=== PATIENT | male | born 1975 | race Caucasian/White ===

== ENCOUNTER 2023-07-30 14:07 | Outpatient (CLI) | payer OTHER, SELFPAY ==
--- NOTE | ~2023-07-30 | XR_ITS ---
EXAMINATION: XR chest 2V 07/30/2023 14:37 INDICATION: Sternal chest pain PROCEDURE: 2 view chest COMPARISON: 12/30/2015 FINDINGS: The lungs are clear. The cardiomediastinal silhouette is within normal limits. There are no pleural effusions. There is no pneumothorax suspected. IMPRESSION: 1: NO ACUTE CARDIOPULMONARY DISEASE. Reviewed, dictated and finalized at location L. ACCEPTANCE TESTER
[2023-07-30 14:36] LABS: Basophils Percent Auto 0.5 % (0.2-1.2); Eosinophils Absolute Auto 0.1 K/mm3 (0-0.3); Eosinophils Percent Auto 1.2 % (0-4.4); Hematocrit 46.8 % (42.0-52.0); Hemoglobin 15.9 g/dL (14.0-18.0); Immature Granulocyte Absolute 0.02 K/mm3 (0.00-0.031); Immature Granulocyte Percent A 0.3 % (0-0.5); Lymphocytes Absolute Auto 1.65 K/mm3 (0.9-3.2); Lymphocytes Percent Auto 22.3 % (18.3-44.2); Mean Corpuscular Volume 91.2 fl (80-100); Mean Platelet Volume 10.1 fl (7.4-10.4); Monocytes Absolute Auto 0.6 K/mm3 (0.1-0.6); Monocytes Percent Auto 7.8 % (2.6-8.5); Neutrophils Percent Auto 67.9 % (45.5-73.1); Platelet Count Result 234 k/mm3 (150-375); Red Blood Count 5.13 M/mm3 (4.6-6.20); Red Cell Distribution Width 12.6 % (11.5-14.5); White Blood Count 7.4 K/mm3 (4.5-10.0)
[2023-07-30 14:42] LABS: Cholesterol 163 mg/dL (0-200); HDL Direct 30 mg/dL; Triglycerides 278 mg/dL (<150)
[2023-07-30 14:44] LABS: Alanine Aminotransferase 31 U/L (6-50); Albumin Level 4.5 g/dL (3.5-5.1); Alkaline Phosphatase 101 U/L (38-126); Anion Gap 10 mmol/L (8-16); Aspartate Amino Transferase 26 U/L (17-59); Bilirubin,Total 0.7 mg/dL (0.2-1.3); Blood Urea Nitrogen 15 mg/dL (9-20); Calcium 9.5 mg/dL (8.4-10.2); Carbon Dioxide 31 mmol/L (22-30); Chloride 100 mmol/L (98-107); Estimated Glomerular Filt Rate > 60; Glucose 118 mg/dL (65-110); Potassium 4.2 mmol/L (3.4-5.0); Sodium 141 mmol/L (137-145)
[2023-07-30 14:53] LABS: LDL Cholesterol Direct 92 mg/dL
[2023-07-30 15:04] LABS: Troponin I < 0.012 ng/mL (0.000-0.034)
== END 2023-07-30 14:08 | disposition home or self-care (01) ==
PROVIDERS: PCP Family Medicine; Visit Provider Physician Assistant
DX: R05.9 Cough, unspecified (principal); E78.1 Pure hyperglyceridemia; R07.9 Chest pain, unspecified; R00.2 Palpitations
CPT/HCPCS: 36415; 71046; 80053; 80061; 84484; 85025

== ENCOUNTER 2023-08-27 09:03 | Outpatient (CLI) | payer OTHER, SELFPAY ==
--- NOTE | 2023-08-27 09:30 | EST_ITS ---
Patient Info Name: Liam Leary Age: 47 years : 1975 Gender: Male Ht: 70 in Wt: 210 lbs BSA: 2.19 m2 HR: 77 bpm BP: 158 / 103 mmHg Heart Rhythm: Sinus Rhythm Exam Date: 08/27/2023 9:41 AM Exam Location: Echo Lab Patient Status: Outpatient Admit Date: 08/27/2023 Staff Ordering Physician: Meghann Lindsey PA-C Attending Provider: Meghann Lindsey PA-C Exercise Technologist: Dominique Arce CT Nurse: Mildred Rodriguez APN Exam Type: CA stress test treadmill Study Info Indications R07.89 - Other chest pain A treadmill exercise stress test was performed. Summary 1. Exercise capacity fair to good at 6-10 METS. 2. Hypertensive blood pressure response with exercise. 3. No abnormal ST/T wave changes diagnostic of ischemia with exercise. 4. No symptoms reported during stress test. 5. Stress test supervised by Mildred Rodriguez NP. Stress test interpreted by Anjum Chappell MD. Protocol: Randy Stress ECG Details Stage: REST Duration (min): 5 min : 46 sec Speed (mph): 0.0 Grade (%): 0 HR (bpm): 83 SBP (mmHg): 158 DBP (mmHg): 103 METS: --- Stage: REST Duration (min): 9 min : 35 sec Speed (mph): 0.0 Grade (%): 0 HR (bpm): 80 SBP (mmHg): 158 DBP (mmHg): 103 METS: --- Stage: STAGE 1 Duration (min): 1 min : 0 sec Speed (mph): 1.7 Grade (%): 10 HR (bpm): 116 SBP (mmHg): 158 DBP (mmHg): 103 METS: --- Stage: STAGE 1 Duration (min): 2 min : 0 sec Speed (mph): 1.7 Grade (%): 10 HR (bpm): 120 SBP (mmHg): 158 DBP (mmHg): 103 METS: --- Stage: STAGE 1 Duration (min): 3 min : 0 sec Speed (mph): 1.7 Grade (%): 10 HR (bpm): 119 SBP (mmHg): 179 DBP (mmHg): 95 METS: --- Stage: STAGE 2 Duration (min): 1 min : 0 sec Speed (mph): 2.5 Grade (%): 12 HR (bpm): 128 SBP (mmHg): 179 DBP (mmHg): 95 METS: --- Stage: STAGE 2 Duration (min): 2 min : 0 sec Speed (mph): 2.5 Grade (%): 12 HR (bpm): 136 SBP (mmHg): 196 DBP (mmHg): 94 METS: --- Stage: STAGE 2 Duration (min): 3 min : 0 sec Speed (mph): 2.5 Grade (%): 12 HR (bpm): 146 SBP (mmHg): 196 DBP (mmHg): 94 METS: --- Stage: STAGE 3 Duration (min): 0 min : 41 sec Speed (mph): 3.4 Grade (%): 14 HR (bpm): 149 SBP (mmHg): 243 DBP (mmHg): 112 METS: --- Stage: RECOVERY Duration (min): 0 min : 18 sec Speed (mph): 0.0 Grade (%): 0 HR (bpm): 147 SBP (mmHg): 243 DBP (mmHg): 112 METS: --- Stage: RECOVERY Duration (min): 1 min : 18 sec Speed (mph): 0.0 Grade (%): 0 HR (bpm): 115 SBP (mmHg): 243 DBP (mmHg): 112 METS: --- Stage: RECOVERY Duration (min): 2 min : 18 sec Speed (mph): 0.0 Grade (%): 0 HR (bpm): 104 SBP (mmHg): 243 DBP (mmHg): 112 METS: --- Stage: RECOVERY Duration (min): 3 min : 18 sec Speed (mph): 0.0 Grade (%): 0 HR (bpm): 102 SBP (mmHg): 184 DBP (mmHg): 105 METS: --- --
== END 2023-08-27 09:04 | disposition home or self-care (01) ==
PROVIDERS: PCP Family Medicine; Visit Provider Physician Assistant
DX: R07.9 Chest pain, unspecified (principal); R06.09 Other forms of dyspnea
CPT/HCPCS: 93017

== ENCOUNTER 2024-10-14 00:38 | Emergency (ER) | payer OTHER, SELFPAY ==
--- NOTE | ~2024-10-14 | XR_ITS ---
Clinical Indication: Cough PA and lateral views of the chest: Comparison: 07/30/2023 Findings: The lungs are clear, without evidence of focal consolidation or pleural effusion. Cardiome diastinal silhouette is within normal limits. Bones and soft tissues are unremarkable. Impression: Normal chest. Reviewed, dictated and finalized at [facility]. CAL OFFICE SUPERVISOR Impression: Normal chest.
--- OUTSIDE RECORDS SUMMARY | 2024-10-14 00:41 | XMS_ITS ---
Author Organization Unknown Medications Medication Instructions Effective Dates (start - sto p) Status - - Compl eted tadalafil 5 MG Oral Tablet [id number]: 00:00Z - Completed tadalafil 5 MG Oral Tablet [id number]: 00:00Z - Completed tadalafil 5 MG Oral Tablet [id number]: 00:00Z - Completed - - Compl eted tadalafil 5 MG Oral Tablet [id number]: 00:00Z - Completed - - Compl eted Patient Care team information Name Category Status Period Participants - - Proposed period not known -
[2024-10-14 00:50] VITALS: BP 163/116; PULSE 100; RESP 15; O2SAT 96
[2024-10-14 00:59] VITALS: BP 163/116; PULSE 100; RESP 15; O2SAT 96
--- NOTE | 2024-10-14 01:16 | ECG_ITS ---
Test Date: 2024-10-14 00:49:54 Measurements Intervals [place] Rate: 97 P: 46 ID: 140 QRS: 29 QRSD: 98 T: 5 QT: 329 QTc: 418 Interpretive Statements SINUS RHYTHM DELAYED PRECORDIAL R/S TRANSITION NONSPECIFIC ST-T WAVE ABNORMALITY- INF/LAT LEADS BASELINE ARTIFACT- I, II, III, AVR, V5 BORDERLINE ECG No previous ECG available for comparison Electronically Signed On 10-14-2024 08:21:22 FREIGHT CAR LOADER by Catrachito Martínez D.O.
--- OUTSIDE RECORDS SUMMARY | 2024-10-14 01:26 | XMS_ITS ---
Author Organization Unknown Medications Medication Instructions Effective Dates (start - sto p) Status - - Compl eted tadalafil 5 MG Oral Tablet [id number]: 00:00Z - Completed tadalafil 5 MG Oral Tablet [id number]: 00:00Z - Completed tadalafil 5 MG Oral Tablet [id number]: 00:00Z - Completed - - Compl eted tadalafil 5 MG Oral Tablet [id number]: 00:00Z - Completed - - Compl eted Patient Care team information Name Category Status Period Participants - - Proposed period not known -
--- NOTE | 2024-10-14 01:27 | ED_ITS ---
HPI - Recheck/Abnormal Lab/Rx General Chief Complaint: Recheck/Abnormal Lab/Rx Stated Complaint: hypertensive crisis, 180/120 Time Seen by Provider: 10/14/24 01:16 Source: patient Mode of arrival: ambulatory Limitations: no limitations History of Present Illness HPI narrative: Patient is a 48-year-old male who presents to the ED with report of URI sx's and elevated BP. Patient reports he has been sick for the past 3 days with cough, congestion, rhinorrhea, myalgias, PAULA, nausea, subjective fevers. Has been taking mucinex and aleve for sx's. States tonight he googled his sx's and was told he may be having a hypertensive crisis. He then checked his blood pressure and noted to be elevated into the 180 systolic. He then prompted here for further evaluation. Denies significant chest pain, shortness of breath. Denies vomiting, abdominal pain. Patient reports previous history of hypertension, states he was on lisinopril in the past, but has not refilled medication in at least 1.5 years. Does not regularly check his BP. Related Data Allergies Allergy/AdvReac Type Severity Reaction Status Date / Time No Known Allergies Allergy Mild Verified 10/14/24 01:00 Review of Systems Review of Systems: All systems reviewed & are unremarkable except as noted in HPI. All systems reviewed & are unremarkable except as noted in HPI and below PMFSH Past Medical History Medical History ELSIE (generalized anxiety disorder) ADD (attention deficit disorder) without hyperactivity Erectile dysfunction Family History Family History Father Hypertension Mother Hypertension Grandparent Brain cancer Father Hypertension Mother Hypertension Social History Social History Social History: Smoking status: Never smoker Second hand tobacco smoke exposure: No Alcohol intake: current Drinks per week: 2 Substance use: current Substance use type: marijuana Last use: Occasionally Living arrangements: with family 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 HEAD: Normocephalic, atraumatic. RESPIRATORY: Airway patent, respirations nonlabored. Clear to auscultation bilaterally, no rales, rhonchi, wheezing. No significant focal lung sounds. CARDIOVASCULAR: Borderline tachycardic with regular rhythm without murmurs, rubs, or gallops. ABDOMINAL: Soft, nontender, nondistended. Normoactive BS. MUSCULOSKELETAL: Moves all extremities. No gross deformities. SKIN: Warm, dry, normal color. NEURO: A&O X3. Speech clear. Cranial nerves II-XII grossly intact. Steady gait. No ataxic movements. No focal deficits. PSYCHIATRIC: Appropriate mood and affect. Normal interaction. Course Vital Signs Vital signs: Vital Signs Pulse Rate 100 10/14/24 00:50 Respiratory Rate 15 10/14/24 00:50 Blood Pressure 163/116 H 10/14/24 00:50 Pulse Oximetry 96 10/14/24 00:50 Oxygen Delivery Room Air 10/14/24 00:50 Pulse Rate 100 10/14/24 00:59 Respiratory Rate 15 10/14/24 00:59 Blood Pressure 163/116 H 10/14/24 00:59 Pulse Oximetry 96 10/14/24 00:59 Oxygen Delivery Room Air 10/14/24 00:50 MDM - Recheck/Abnormal Lab/Rx MDM Narrative Medical decision making narrative: Patient presented to ED with several day history of URI symptoms, with elevated blood pressure today. BP 160s over 116 upon arrival. Previous diagnosis of hypertension, but not currently on any medications. Influenza a testing is positive. Consistent with clinical picture. CXR interpreted by myself w/o acute focal findings or changes from previous EKG w/o ischemic changes Patient feeling improved with supportive therapy. Blood pressure decreased down to 150 systolic without intervention. Feel patient is safe for discharge home at this time. Will refill patient's previous lisinopril prescription. Advised close follow-up with PCP for further evaluation. Recommended that he monitor blood pressures at home and keep recording. Discussed strict return precautions. He agrees with plan. Discharged in stable condition. Medical Records Attestation: I reviewed the patient's medical records. Lab Data Attestation: I reviewed the patient's lab results. Labs: Lab Results 10/14/24 Range/Units 01:54 Influenza A (RT-PCR) Positive A (Negative) Influenza B (RT-PCR) Negative (Negative) RSV (RT-PCR) Negative (Negative) SARS-CoV-2 RNA (RT-PCR) Negative (Negative) Imaging Data Attestation: I personally reviewed and interpreted this imaging study as follows: My impression: CXR: Clear ECG Data EKG #1: Attestation: I personally reviewed and interpreted this ECG as follows: ECG completion date: 10/14/24 ECG completion time: 00:49 EKG Interpretation: normal rate (97), sinus rhythm and non-specific ST changes Discharge Plan Discharge Clinical Impression: Influenza A, Elevated blood pressure reading with diagnosis of hypertension Patient Disposition: Home, Self-Care Condition: Stable Instructions: Antibiotic Form, Influenza (ED), Chronic Hypertension (ED) Additional Instructions: You were diagnosed with Influenza A today. Isolate at home as you are contagious. Stay well-hydrated at home. Recommend electrolyte rich fluids, Gatorade, Pedialyte, body armor. Zofran as needed for nausea. Tessalon Perles as needed for cough. Tylenol and Ibuprofen for discomfort and/or fevers. Recommend egze-hcz-wkblner cough and cold medicines for symptom relief, Delsym, Mucinex, DayQuil, NyQuil, Sudafed, Robitussin, TheraFlu. Follow with primary care doctor upon resolution of symptoms. Return to the ED if you experience chest pain, difficulty breathing, unable to keep down food or drink, severe pain, or any other symptoms of concern. Take lisinopril daily as prescribed. Monitor blood pressures daily and keep recording of these numbers. Follow-up with your primary care doctor for further management. Patient Language: Albanian Prescriptions: New benzonatate 200 mg capsule 200 mg PO TID PRN (Reason: cough) Qty: 15 0RF ondansetron 4 mg tablet,disintegrating 4 mg PO Q8H PRN (Reason: nausea and vomiting) Qty: 15 0RF lisinopril 2.5 mg tablet 2.5 mg PO DAILY Qty: 60 0RF No Action lisinopril 2.5 mg tablet 2.5 mg PO DAILY Qty: 30 2RF omeprazole 20 mg capsule,delayed release(DR/EC) 20 mg PO DAILY Qty: 90 1RF tadalafil 5 mg tablet 5 mg PO DAILY PRN (Reason: sexual activity) Qty: 30 0RF Rx Instructions: administer approximately 30min before sexual activity; do not use more than 1 dose per 24hrs Follow-up/Referrals: PHYSICIAN,PORCELAIN TURNER [Primary Care Provider] - Time of Disposition: 03:43
[2024-10-14] MEDS: KETOROLAC (*BKC) 60 MG/2 ML VIAL IM (02:09)
[2024-10-14] MEDS: ONDANSETRON HCL ODT 4 MG TABLET PO (02:09)
[2024-10-14] MEDS: ACETAMINOPHEN 500 MG TABLET 1000 MG PO (02:09)
[2024-10-14 02:35] LABS: Influenza A QL RT-PCR Positive (Negative); Influenza B QL RT-PCR Negative (Negative); RSV RNA, RT-PCR Negative (Negative); SARS-CoV-2 RNA PCR Negative (Negative)
[2024-10-14 03:34] VITALS: BP 153/109; PULSE 95; RESP 16; O2SAT 98
== END 2024-10-14 04:15 | disposition home or self-care (01) ==
PROVIDERS: Emergency Provider Physician Assistant
DX: J10.1 Influenza due to other identified influenza virus with other respiratory manifestations (principal); Z20.822 Contact with and (suspected) exposure to COVID-19; I10 Essential (primary) hypertension; R94.31 Abnormal electrocardiogram [ECG] [EKG]; T46.4X6A Underdosing of angiotensin-converting-enzyme inhibitors, initial encounter; Z91.128 Patient's intentional underdosing of medication regimen for other reason
CPT/HCPCS: 71046; 87637; 93005; 96372; 99283; A9270; J1885

== ENCOUNTER 2024-11-11 09:39 | Outpatient (CLI) | payer OTHER, SELFPAY ==
[2024-11-11 10:16] LABS: Hematocrit 44.5 % (42.0-52.0); Hemoglobin 15.1 g/dL (14.0-18.0); Mean Corpuscular HGB Conc 33.9 g/dl (32-36); Mean Corpuscular Volume 91.4 fl (80-100); Mean Platelet Volume 10.9 fl (7.4-10.4); Platelet Count Result 199 k/mm3 (150-375); Red Blood Count 4.87 M/mm3 (4.6-6.20); Red Cell Distribution Width 13.2 % (11.5-14.5); White Blood Count 5.1 K/mm3 (4.5-10.0)
[2024-11-11 10:18] LABS: Add Urine Microscopic? NO; Appearance Urine Clear (Clear); Bilirubin Urine Negative (Negative); Blood Urine Negative (Negative); Color Urine Yellow (Yellow); Glucose Urine UA Negative (Negative); Ketones Urine Negative (Negative); Leukocyte Esterase Ur Negative LEU/UL (Negative); Nitrate Urine Negative (Negative); Protein Urine Negative (Negative); Specific Grav Ur 1.022 (1.001-1.035); Urobilinogen Urine 0.2 mg/dL (<2.0)
[2024-11-11 10:33] LABS: Alanine Aminotransferase 34 U/L (6-50); Albumin Level 4.4 g/dL (3.5-5.1); Alkaline Phosphatase 117 U/L (38-126); Anion Gap 7 mmol/L (4-12); Aspartate Amino Transferase 25 U/L (17-59); Bilirubin,Total 0.6 mg/dL (0.2-1.3); Blood Urea Nitrogen 19 mg/dL (9-20); Calcium 9.1 mg/dL (8.4-10.2); Carbon Dioxide 29 mmol/L (22-30); Chloride 106 mmol/L (98-107); Cholesterol 137 mg/dL (0-200); Estimated Glomerular Filt Rate > 60; Glucose 127 mg/dL (65-110); HDL Direct 27 mg/dL; Potassium 4.4 mmol/L (3.4-5.0); Sodium 142 mmol/L (137-145); Triglycerides 259 mg/dL (<150)
[2024-11-11 10:34] LABS: Hemoglobin A1C 6.2 % (<5.7)
[2024-11-11 10:47] LABS: LDL Cholesterol Direct 68 mg/dL
== END 2024-11-11 09:40 | disposition home or self-care (01) ==
PROVIDERS: PCP Family Medicine; Visit Provider Physician Assistant Medical
DX: Z00.00 Encounter for general adult medical examination without abnormal findings (principal); R73.9 Hyperglycemia, unspecified; R03.0 Elevated blood-pressure reading, without diagnosis of hypertension; F41.1 Generalized anxiety disorder; R20.2 Paresthesia of skin
CPT/HCPCS: 36415; 80053; 80061; 81003; 82607; 83036; 84443; 85027

== ENCOUNTER 2024-11-18 00:28 | Day surgery (SDC) | payer OTHER, SELFPAY ==
[2024-11-13 15:21] VITALS: BMI 31.6
--- OUTSIDE RECORDS SUMMARY | 2024-11-18 00:32 | XMS_ITS ---
Author Organization Unknown Medications Medication Instructions Effective Dates (start - sto p) Status - - Compl eted tadalafil 5 MG Oral Tablet [id number]: 00:00Z - Completed tadalafil 5 MG Oral Tablet [id number]: 00:00Z - Completed tadalafil 5 MG Oral Tablet [id number]: 00:00Z - Completed - - Compl eted tadalafil 5 MG Oral Tablet [id number]: 00:00Z - Completed - - Compl eted Patient Care team information Name Category Status Period Participants - - Proposed period not known -
[2024-11-18 13:29] VITALS: BP 153/103; PULSE 78; RESP 16; TEMP 35.9; O2SAT 100; BMI 30.3
[2024-11-18] MEDS: LACTATED RINGERS 1,000 ML 150 ML IV CONT (13:37)
--- NOTE | 2024-11-18 13:56 | P.PNAN_ITS ---
Anes - Initial Pre Proc Eval Procedure: Operation Date: 11/18/24 14:00 Proposed Procedures p Screening Colonoscopy - Antolin Payan MD Date/Time: 11/18/24 13:56 Surgeon: Antolin Payan MD Pre Op Diagnosis: Encounter for screening for malignant neoplasm of Patient Data Age: 49 Gender: M Height: 1.78 m Weight: 95.9 kg Last Vital Signs Temp 96.6 F L 11/18/24 13:29 Pulse 78 11/18/24 13:29 Resp 16 11/18/24 13:29 BP 153/103 H 11/18/24 13:29 Pulse Ox 100 11/18/24 13:29 O2 Del Method Room Air 11/18/24 13:29 Allergies Allergy/AdvReac Type Severity Reaction Status Date / Time No Known Allergies Allergy Mild Verified 11/18/24 13:28 Home Medications ?Medication ?Instructions ?Recorded ?Confirmed ?Type lisinopril 10 mg tablet 10 mg PO DAILY #90 tabs 11/11/24 11/18/24 Rx omeprazole 20 mg capsule,delayed 20 mg PO DAILY #90 caps 11/11/24 11/18/24 Rx release tadalafil 5 mg tablet 5 mg PO DAILY PRN sexual activity 11/11/24 11/13/24 Rx #30 tabs Patient hx anesthesia problems: none Family hx anesthesia problems: none Results Review: All pre-operative results and documents have been reviewed as part of the pre- operative evaluation. [facility] Past Medical History Medical History ELSIE (generalized anxiety disorder) ADD (attention deficit disorder) without hyperactivity Erectile dysfunction Family History Family History Father Hypertension Mother Hypertension Grandparent Brain cancer Father Hypertension Mother Hypertension Social History Social History Social History: Smoking status: Never smoker Second hand tobacco smoke exposure: No Alcohol intake: current Drinks per week: 3 Substance use: current Substance use type: marijuana Other substance usage details: Edibles Last use: 11/11/2024 Do You Feel Safe in your Home?: Yes Lack of Transportation: No Lack of Food: Never True Current Housing: I Have Housing Concerned About Future Housing: No Difficulty Paying Gas/Electric Bills: No Difficulty Paying for Meds: No Currently Unemployed: No Education: Don't Know Difficulty w/ Childcare or Family Care: No Living arrangements: with family Additional living arrangements comments: with sp 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 HTN, active as a biker. Informed Consent: The patient's anesthetic plan and its attendant risks and benefits were discussed with the patient/family/POA. Questions were solicited and answers provided to the satisfaction of the patient/family/POA.
--- NOTE | 2024-11-18 14:52 | PM.IMHP ---
H&P: HPI History of Present Illness Date/Time: 11/18/24 14:52 Chief Complaint: Screening colonoscopy Narrative: This is the patient's first colonoscopy. There are no GI symptoms and there is no family history of colorectal cancer. Review of Systems Review of Systems: All systems reviewed & are unremarkable except as noted in HPI and below PMFSH Past Medical History Medical History ELSIE (generalized anxiety disorder) ADD (attention deficit disorder) without hyperactivity Erectile dysfunction Family History Family History Father Hypertension Mother Hypertension Grandparent Brain cancer Father Hypertension Mother Hypertension Social History Social History Social History: Smoking status: Never smoker Second hand tobacco smoke exposure: No Alcohol intake: current Drinks per week: 3 Substance use: current Substance use type: marijuana Other substance usage details: Edibles Last use: 11/11/2024 Do You Feel Safe in your Home?: Yes Lack of Transportation: No Lack of Food: Never True Current Housing: I Have Housing Concerned About Future Housing: No Difficulty Paying Gas/Electric Bills: No Difficulty Paying for Meds: No Currently Unemployed: No Education: Don't Know Difficulty w/ Childcare or Family Care: No Living arrangements: with family Additional living arrangements comments: with sp 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 Gender identity (if verbalized by the patient): Male Sexual Orientation (if Verbalized by the Patient): Straight or Heterosexual Meds Home Medications and Allergies Home Medications ?Medication ?Instructions ?Recorded ?Confirmed ?Type lisinopril 10 mg tablet 10 mg PO DAILY #90 tabs 11/11/24 11/18/24 Rx omeprazole 20 mg capsule,delayed 20 mg PO DAILY #90 caps 11/11/24 11/18/24 Rx release tadalafil 5 mg tablet 5 mg PO DAILY PRN sexual activity 11/11/24 11/13/24 Rx #30 tabs Allergies Allergy/AdvReac Type Severity Reaction Status Date / Time No Known Allergies Allergy Mild Verified 11/18/24 13:28 Vital Signs Vital Signs - 24 hr 11/18/24 13:29 Temperature 96.6 F L Pulse Rate 78 Respiratory Rate 16 Blood Pressure 153/103 H Pulse Oximetry 100 Oxygen Delivery Room Air Exam Const: General: cooperative and healthy appearing Resp: Effort & Inspection: normal respiratory effort and able to speak in complete sentences Auscultation: clear to auscultation bilaterally Cardio: Rate: regular rate Rhythm: regular rhythm GI: Inspection: normal to inspection GI Palp: No No hepatosplenomegaly present Auscultation: normal bowel sounds Rectal Exam: deferred Skin: General skin exam: normal color Psych: Appearance: grossly normal Mental Status: mental status grossly normal Assessment and Plan Assessment and plan (1) Screen for colon cancer: Code(s): Z12.11 - Encounter for screening for malignant neoplasm of colon Status: Acute Assessment and Plan: The patient is deemed a good candidate for the procedure. Consent signed. Will proceed.
[2024-11-18 15:21] VITALS: BP 132/90; PULSE 72; RESP 20; O2SAT 100
[2024-11-18 15:31] VITALS: BP 142/99; PULSE 63; RESP 20; O2SAT 100
[2024-11-18 15:41] VITALS: BP 143/102; PULSE 64; RESP 16; O2SAT 100
== END 2024-11-18 15:56 | disposition home or self-care (01) ==
PROVIDERS: PCP Family Medicine; Referring Provider Physician Assistant Medical; Visit Provider Internal Medicine Gastroenterology
PROC: 0DJD8ZZ Inspection of Lower Intestinal Tract, Via Natural or Artificial Opening Endoscopic (ICD-10-PCS; CPT 45378; principal; 2024-11-18 14:00)
DX: Z12.11 Encounter for screening for malignant neoplasm of colon (principal); D12.5 Benign neoplasm of sigmoid colon; K63.5 Polyp of colon; F41.9 Anxiety disorder, unspecified; F98.8 Other specified behavioral and emotional disorders with onset usually occurring in childhood and adolescence; N52.9 Male erectile dysfunction, unspecified; F12.90 Cannabis use, unspecified, uncomplicated; E66.9 Obesity, unspecified; Z68.30 Body mass index [BMI] 30.0-30.9, adult; Z80.8 Family history of malignant neoplasm of other organs or systems
CPT/HCPCS: 45385; 88305; J2003; J2704; J7120

== ENCOUNTER 2025-07-31 07:05 | Outpatient (CLI) | payer OTHER, SELFPAY ==
--- NOTE | ~2025-07-31 | MR_ITS ---
EXAMINATION: MR orbits face neck wo/w con DATE: 07/31/2025 08:13 INDICATION: Diplopia. TECHNIQUE: Magnetic resonance imaging (MRI) of the orbits was performed without and with 20 mL MultiHance intravenous contrast. COMPARISON: None. 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 The ventricles are normal in size. The ocular globes, extraocular muscles, and optic nerves are normal. There is no abnormal orbital mass. There is mucosal thickening in the paranasal sinuses. IMPRESSION: 1. Normal orbits. 2. Old infarct in the right basal ganglia. Reviewed, dictated and finalized at location E. E OPERATOR
== END 2025-07-31 07:06 | disposition home or self-care (01) ==
PROVIDERS: PCP Family Medicine; Visit Provider Physician Assistant
DX: H53.2 Diplopia (principal); Z86.73 Personal history of transient ischemic attack (TIA), and cerebral infarction without residual deficits
CPT/HCPCS: 70543; A9577